=== PATIENT | female | born 1940 | race Caucasian/White ===

== ENCOUNTER 2019-02-05 11:53 | Inpatient (IN) | payer MEDICARE, OTHER ==
[~2019-02-05] VITALS: Ht 157.5 cm; Wt 75.1 kg
[2019-02-05] MEDS ORDERED: LEVSOD125 PO (12:07)
[2019-02-05] MEDS ORDERED: FLUT1DIS5 INH (12:07)
[2019-02-05] MEDS ORDERED: TIMO.5OPSO BOTHEYES (12:08)
[2019-02-05] MEDS ORDERED: OMEP20ER PO (12:08)
[2019-02-05] MEDS ORDERED: Ventolin/Prove6.7 GM INH (12:08)
[2019-02-05 12:15] LABS: Chloride (POC) 104 mmol/L (98-108); Creatinine (POC) 0.8 mg/dL (0.6-1.0); Glucose (ISTAT POC) 146 mg/dL (70-99); Hemoglobin (POC) 13.9 g/dL (12.0-16.0); Potassium (POC) 4.2 mmol/L (3.5-5.5); Sodium (POC) 138 mmol/L (135-148); Total CO2 (POC) 25 mmol/L (21-32)
--- NOTE | 2019-02-05 14:12 | NUR ---
PATIENT ARRIVED FROM THE CREPING MACHINE OPERATOR HELPER VIA HOSPITAL BED TO ROOM ICU 9, TR BAND IN PLACE ON RIGHT RADIAL, PATIENT IS AWAKE BUT HEAVILY SEDATED AND UNABLE TO ANSWER QUESTIONS, AND SON AT BEDSIDE, IS NOT VERY KNOWLEDGEABLE ON PATIENT'S MEDICAL HISTORY OR DAILY MEDICATIONS, WILL WAIT UNTIL PATIENT IS MORE ALERT, PATIENT STATED SHE HAS "TO PEE", BEDPAN GIVEN, VOIDED 425, BUT HAD ONE INCONTINENCE EPISODE PRIOR TO BEDPAN, LINEN CHANGED, PATIENT AND FAMILY WERE INSTRUCTED THAT PATIENT CANNOT MOVE RIGHT WRIST, ARMBOARD IN PLACE, PATIENT WAS PLACED ON MONITOR, FAMILY AND PATIENT ORIENTED TO ROOM AND NEW ENVIRONMENT, CALL LIGHT GIVEN AND EXPLAINED, FAMILY AND PATIENT VERBALIZED UNDERSTANDING, NO ORDERS YET FROM CREPING MACHINE OPERATOR HELPER, DR. WISE CALLED AND HE WILL WRITE AND SIGN THE ORDERS.
--- NOTE | 2019-02-05 15:21 | NUR ---
PATIENT IS WAKING UP SLIGHTLY MORE, STILL NOT ABLE TO TELL ME WHAT HAPPENED, C/O CHRONIC BACK PAIN, ICE WATER GIVEN, SWALLOWED WITHOUT ANY PROBLEM, RIGHT RADIAL SIDE INTACT, TR BAND AND ARMBOARD IN PLACE, PATIENT HAS GOOD SENSATION AND FEELING IN FINGERS OF RIGHT HAND, ABLE TO MOVE ALL FINGERS WITHOUT ANY PROBLEMS, CALL LIGHT IN REACH, WILL CONTINUE TO MONITOR.
--- NOTE | 2019-02-05 15:45 | NUR ---
PATIENT'S CAME OUT OF ROOM TO NURSES STATION AND REPORTED THAT PATIENT WAS C/O CHEST PAIN, DR. WISE NOTIFIED, NO PAIN MEDICATION ORDERED, DR. WISE ORDERED STAT EKG, NO CHANGES SEEN, DR. WISE AT BEDSIDE, ORDERED PAIN MEDICATION, WILL GIVE WHEN AVAILABLE, CALL LIGHT IN REACH, WILL CONTINUE TO MONITOR.
--- NOTE | 2019-02-05 16:33 | NUR ---
PATIENT RECEIVED ONE 5 MG PERCOCET PO FOR HER SHOULDER PAIN, AT BEDSIDE, LAB IN TO DRAW TROPONINS, PATIENT VERY PAINFUL WITH NEEDLE STICKS, WILL CONTINUE TO MONITOR, CALL LIGHT IN REACH.
--- NOTE | 2019-02-05 16:49 | NUR ---
PATIENT CONTINUES TO BE CONFUSED, WHEN ASKED WHERE SHE IS, PATIENT IS ABLE TO ANSWER "HOSPITAL", WHEN ASKED WHAT TOWN SHE IS IN, PATIENT IS UNABLE TO STATE AND ASKED FOR HELP, PATIENT STATED "I JUST DON'T FEEL WELL, AND ALL THAT PAIN", LAB IN AGAIN TO TRY AND DRAW TROPONINS, AT BEDSIDE, CALL LIGHT IN REACH, WILL CONTINUE TO MONITOR.
--- NOTE | 2019-02-05 17:10 | NUR ---
PATIENT C/O PAIN IN HER RIGHT LEG, PATIENT WAS FOUND TO HAVE BEEN INCONTINENT, ONE HEAVY WET BRIEF, PATIENT WAS CHANGED AND REPOSITIONED, STATED THAT "SHE GETS MAD WHEN SHE IS IN PAIN, AND TODAY SHE IS SCARED WELL", PATIENT CALMER, CALL LIGHT IN REACH, WILL CONTINUE TO MONITOR.
--- NOTE | 2019-02-05 17:44 | NUR ---
PATIENT APPEARS TO BE RESTING COMFORTABLY WITH EYES CLOSED, CALL LIGHT IN REACH, WILL CONTINUE TO MONITOR.
--- NOTE | 2019-02-05 17:48 | NUR ---
SHIFT SUMMARY NOTE: PATIENT APPEARS TO BE SLEEPING AT THIS TIME, RECEIVED ONE 5 MG PERCOCET PO FOR SHOULDER PAIN, PATIENT C/O NOT FEELING WELL ALL OVER, BUT MOSTLY SHOULDER PAIN, R RADIAL ACCESS SITE C/D/I, TR BAND HAD 12 CC OF AIR INFLATED, AT THIS TIME 6 CC'S HAVE BEEN REMOVED, PATIENT TOLERATING WELL, NO S/S OF HEMATOMA, NO BLEEDING, NONTENDER, ARMBOARD IN PLACE, PATIENT'S BASELINE IS ALERT AND ORIENTED BUT SHE IS STILL SLIGHTLY CONFUSED POSSIBLY FROM SEDATIVES ADMINISTERED FOR HEART CATH PROCEDURE, ALSO PATIENT EXPERIENCES URGENCY WHEN URINATING AND WAS INCONTINENT TWICE, PATIENT IS PLEASANT AND COOPERATIVE BUT GETS MAD WHEN SHE IS IN PAIN PER HER , VSS, AFEBRILE, PAIN APPEARS TO BE UNDER CONTROL AT THIS TIME, CALL LIGHT IN REACH, WILL CONTINUE TO MONITOR.
[2019-02-05 18:53] LABS: Magnesium, Blood 1.8 mg/dL (1.6-2.4); Potassium, Blood 3.5 mmol/L (3.5-5.5)
--- NOTE | 2019-02-05 19:30 | NUR ---
[place] of Care: Patient drowsy/sleepy, responds easily to verbal stimuli. Oriented to self/place, confused to time/date, and states she is in the hospital for "pain". Denies dyspnea/SOB, O2-96-98% on RA. C/o mid-sternal chest pain, patient unable to rate or describe pain, states 'it just hurts". Dr. Shepard to room at shift change, received verbal orders for EKG, Nitro gtt, and to given 1g magnesium IV x1 now. Dr. Shepard reviewed results of repeat EKG, stated no changes noted r/t previous EKG on day shift. Heart rhythm on monitor in room shows NSR, rate- 60's-70's, with occasional PVC's. Will start Nitro gtt and monitor for effect. TR band in place to right radial arterial access site. Day shift RN reports 2ml air remains in TR band, no s/s of bleeding or hematoma noted. Rt hand temp, color, sensation all wnl. Will continue to monitor for pain, safety, comfort.
[2019-02-06 03:13] LABS: BASOPHILS ABSOLUTE AUTO 0.06 K/mm3 (0.00-0.23); BASOPHILS PERCENT AUTO 0 % (0-2); EOSINOPHILS ABSOLUTE AUTO 0.04 K/mm3 (0.00-0.68); EOSINOPHILS PERCENT AUTO 0 % (0-6); Hematocrit 39.1 % (33.0-51.0); Hemoglobin 13.3 g/dL (11.5-16.0); IMMATURE GRAN ABSOLUTE AUTO 0.06 K/mm3 (0.00-0.10); IMMATURE GRAN PERCENT AUTO 0 % (0-1); LYMPHOCYTES ABSOLUTE AUTO 1.24 K/mm3 (0.84-5.20); LYMPHOCYTES PERCENT AUTO 8 % (21-46); MONOCYTES ABSOLUTE AUTO 1.12 K/mm3 (0.16-1.47); MONOCYTES PERCENT AUTO 7 % (4-13); Mean Corpuscular HGB 30.7 pg (26.0-34.0); Mean Corpuscular Volume 90 fL (80-100); Mean Platelet Volume 9.7 fL (9.1-12.4); NEUTROPHILS ABSOLUTE AUTO 13.28 K/mm3 (1.96-9.15); NEUTROPHILS PERCENT AUTO 84 % (41-73); Platelet Count 277 K/mm3 (150-400); RDW Standard Deviation 42.6 fL (35.1-46.3); Red Blood Cell Count 4.33 M/mm3 (3.80-5.20)
[2019-02-06 03:29] LABS: Anion Gap 10 mmol/L (6-16); Blood Urea Nitrogen 12 mg/dL (8-24); Bun/Creatinine Ratio 20.9 (12.0-20.0); CO2, Blood 24 mmol/L (21-32); Calcium, Blood 8.8 mg/dL (8.5-10.1); Chloride, Blood 106 mmol/L (98-108); Creatinine, Blood 0.57 mg/dL (0.40-1.00); Glomerular Filtration Rate >60 (60-); Glucose, Blood 175 mg/dL (70-99); Magnesium, Blood 2.3 mg/dL (1.6-2.4); Potassium, Blood 3.4 mmol/L (3.5-5.5); Sodium, Blood 140 mmol/L (136-145)
--- NOTE | 2019-02-06 06:24 | NUR ---
Shift Summary: Patient slept on/off throughout shift. Continues to c/o chest pain/discomfort throughout shift when awake. Patient remains pleasantly confused, unable to describe pain or rate pain. Also has difficulty identifying location of pain, will state "my arm hurts" then points to her chest when asked to show staff location. Nitro gtt titrated up from 5mcg/min to 80mcg/min throughout shift with little to no effect noted, BP remained stable but decreased to systolic 90's, MAP-65 at times. X1 prn Percocet given, patient stated that it was slightly helpful, and approx 2-3hr of sleep noted after administration. Repeat EKG obtained at 0100hr, with no significant changes noted r/t previous EKG. Contacted Dr. Shepard this morning r/t continues chest pain and continued confusion. Received orders for STAT CT of head without contrast, GI cocktail q6hr prn, and Morphine 1mg q2-4hr prn IV. Patient Transferred to imaging for CT scan and back ro room via hospital bed without difficulty. PRN Morphine and GI cocktail given upon return to unit, will monitor for effect. Appears calm and comfortable at this time, patient's at bedside, VSS. Will continue to monitor until report to day shift RN.
--- NOTE | 2019-02-06 09:31 | NUR ---
0800 PT IS ALERT BUT IS SOMEWHAT VAGE RE S/S AND HX OF WHAT IS HAPPENING. PT DENIES PAIN OR DISTRESS AT THIS TIME. NTG DOWN TO 6O MCG WITH PT C/O SL. BAEZA. VS NOTED SL SOFT AND WILL INQUIRE RE AM MEDS AND BALANCING NTG GTT. VS HAVE BEEN STABLE.
--- NOTE | 2019-02-06 09:38 | NUR ---
PT DID EXPERIENCE SOME N/V BUT RAPPIDLY SUBSIDED AFTER EMESIS. PT NOW C/O CHEST PAIN BUT UNABLE TO QUANTIFY AND IS MID-STERNAL. PT LABS TO BE DRAWN AND DR WISE IS AWARE OF CURRENT STATUS AND EKG...LABS TO FOLLOW.
--- NOTE | 2019-02-06 09:42 | NUR ---
ECHOCARDIOGRAM COMPLETE
--- NOTE | 2019-02-06 12:15 | NUR ---
NTG GTT TURNED OFF AND PT CON TO C/O ONLY SL H.A. AND WILL FOLLOW FOR NOW. PT DENIES CHEST PAIN AND VS NOTED ON AM PO MEDS.
--- NOTE | 2019-02-06 16:30 | NUR ---
ECHO CARDIOGRAM AND PARTIAL WITH CONTRAST COMPLETE
--- NOTE | 2019-02-06 17:36 | NUR ---
PT HAS JUST BEEN UP TO BSC AGAIN TO VOID BUT WAS ALSO INCONT OF URINE PRIOR TO CALL. PT CONT TO HAVE PLEASANT CONFUSION RELATED SYMPTOMS AND ATTTEMPTS TO COVER FOR HER MILD CONFUSION. WILL TAKE INSTRUCTION WELL BUT HAS SHORT MEMORY ISSUES. PT DENIES CHEST PAIN WITH MOVEMENT AND ACTIVITY. PT TR SITE IS INTACT AND WILL CONT TO USES WRIST BOARD DUE TO FORGETFULNESS. PT IS OCC PULLING ON SAT PROBE, AND LEADS. IS IN ROOM WITH PT BUT WILL ADD BED ALARM FOR EXTRA SAFETY MEASURES. TROPONIN FROM [address] WISE WITH REQUEST FOR TRANSFER DENIED DUE TO PT RECENT ICU HX OF CHEST PAIN, TROPONINS, AND NTG GTT USE. WILL RECONSIDER IN AM.
--- NOTE | 2019-02-06 19:30 | NUR ---
ASSUMED PT CARE FROM [place] [facility] PT SITTING UP IN BED VISITING WITH FAMILY. DENIES ANY CHEST PAIN AT THIS TIME. ARM BOARD IN PLACE TO RIGHT WRIST/ARM. RIGHT RADIAL SITE APPEARS SOFT, NON-TENDER WITH NO OOZING NOTED; DRESSING CDI. BLOOD PRESSURES STABLE AT THIS TIME. PT APPEARS ALERT AND ORIENTED X4; HOWEVER, FREQUENTLY LOOKS TO FAMILY FOR ANSWERS. AT TIMES PT BECOMES FRUSTRATED WITH FORGETFULNESS/CONFUSION, BUT IS EASILY REDIRECTABLE. PT ALSO MAKES STATEMENTS THAT DON'T ALWAYS MAKE LOGICAL SENSE. HOWEVER, PT IS ABLE TO MAKE HER BASIC NEEDS KNOWN; ABLE TO DEMONSTRATE USE OF CALL LIGHT APPROPRIATELY, WHICH WAS LEFT WITHIN REACH. FAMILY AT BEDSIDE AND APPROPRIATE WITH CARES.
--- NOTE | 2019-02-07 05:46 | NUR ---
END OF SHIFT SUMMARY PT REMAINS ALERT, BUT CONFUSED AND FORGETFUL AT BASELINE. MINIMAL SLEEP TONIGHT WITH MULITPLE BATHROOM INTERRUPTIONS. PT AT TIMES WOULD ASK, "WHO IS THAT GIRL OVER THERE?" WITH NOBODY IN THE DIRECTION SHE WAS POINTING. ASKED PT IF SHE WAS HEARING ANY VOICES IN WHICH SHE STATED, "NO". REASSURED PT THAT THERE WEREN'T ANY "GIRLS" IN THE DIRECTION SHE WAS POINTING. PT HAS DENIED CHEST PAIN ALL NIGHT. RIGHT RADIAL SITE IS SOFT, NON-TENDER WITH TEGADERM IN PLACE WITH NO OOZING NOTED. PT C/O HEADACHE THIS AM IN WHICH PT WAS GIVEN TYLENOL PER ORDERS; APPEARED EFFECTIVE PT IS CURRENTLY SLEEPING. AT BEDSIDE MOST OF NIGHT, BUT LEFT THIS EARLY AM TO GO HOME AND SHOWER. BED ALARM SET PT WILL ATTEMPT TO GET UP ON OWN. PT IS ABLE TO DEMONSTRATE HOW TO USE THE CALL LIGHT, BUT MAINLY HER ENSURES HER NEEDS ARE BEING MET. WILL CONTINUE TO MONITOR UNTIL REPORT IS HANDED OFF TO ONCOMING RN.
--- NOTE | 2019-02-07 12:13 | NUR ---
0800 ASSESMENT REVEALS PT WITHDRAWN AND DEPRESSED. SHE IS NOT VERY VERBAL AND IS NOT VERBAL YESTERDAY. PT ENCOURAGED TO GET UP INTO CHAIR WHICH SHE DID RELUCTANTLY. PT IS WEAK ON FEET AND WITH POOR BALANCE. PT ALSO REMAINS CONFUSED AND UNABLE TO MAKE EVEN A GOOD GUESS TO WHERE SHE IS THIS AM. PT IS PLEASANT AND WILL FOLLOW INSTRUCTIONS BUT SOMEWHAT IN A NON-PARTICIAPTING MOOD THIS AM. FAMILY IS IN WITH PT. PT ONLY ATE A FEW BITES OF FOOD THIS AM.
--- NOTE | 2019-02-07 12:31 | NUR ---
PT PASSING LOOSE BROWN STOOL THAT WILL BE SENT OFF FOR A SPECIMEN PER PROTOCAL. PT ALSO VOIDED.
--- NOTE | 2019-02-07 17:11 | NUR ---
PT HAS BEEN UP AND DOWN SEVERAL TIMES TODAY TO CHAIR AND IS CURRENTLY NAPPING. PT FAMILY HAS BEEN WITH PT MOST OF DAY. PT HAS NOT HAD CHEST PAIN OR RESP DISTRESS TODAY BUT CONT. TO HAVE PLEASANT CONFUSION AND FORGETFULNESS. PT VS HAVE BEEN STABLE WITH SBP 100-ADAM AND HR 60-70 RANGE.
--- NOTE | 2019-02-08 00:29 | NUR ---
UPDATE: DURING ASSESSMENT, PT C/O NOT BEING ABLE TO BREATH VERY WELL. PT LYING SUPINE AND FLAT. SATS INITIALLY 89% ON EAR LOBE. PT REPOSITIONED AND BROUGHT INTO A HIGH FOWLERS, OXYMETER PLACED ON RIGHT HAND WITH SATS 98%. PT CONTINUES TO DENYU CHEST PAIN, BUT STATE, "I DON'T KNOW" WHEN ASKED COULD BREATH EASIER SITTING UP. PT STATED WAS COMFORTABLE. PT HAS NOT VOIDED THIS SHIFT THUS FAR. PT'S SPOUSE STATED THAT PT VOIDS IN TOILET AT HOME WITH HELP. PT ATTENDS DRY. PT STATED FEELS TIRED. PT REMAINS ON MONITOR. SPOUSE REMAINS AT BEDSIDE. CALL LIGHT WITHIN REACH. WILL CONTINUE TO MONITOR.
--- NOTE | 2019-02-08 01:18 | NUR ---
START OF SHIFT: REPORT FROM JEFF CASIANO. PT AWAKE AT THAT TIME WITH FAMILY AT BEDSIDE. ASSESSMENT; PT ORIENTEDT TO SELF, FAMILY, AND FOLLOWS DIRECTION. PT WITH FLAT AFFECT AND STATED THAT SHE WAS JUST TIRED. PT WOULD LOOK TO FAMILY AND MAINLY HER SPOUSE FOR ANSWERS TO QUESTIONS THAT WERE BEING ASKED. PT'S DAUGHTER AT BEDSIDE AND STATED THAT THIS WAS NOT PT'S NORMAL BUT HAS BEEN FOR PAST COUPLE DAYS AND THAT PT HAS HAD HARDLY ANY SLEEP. PT'S SPOUSE STATED PT HAD A, "DIFFICULT NIGHT LAST NIGHT AND WAS TRYING TO PULL THAT THING OFF" (POINTING TO PT'S IV). PT OTHERWISE HAS DENIED PAIN T/O THIS NOC THUS FAR. (SEE PREVIOUS UPDATE NOTE). PT REMAINS ON CARDIAC MONITORING. CALL LIGHT WITHIN REACH.
--- NOTE | 2019-02-08 01:45 | NUR ---
INCREASED ECTOPY: PT RHTHYM WITH CONTINUED T-WAVE INVERSION. T/O THIS SHIFT PT WITH INCREASED ECTOPY AND OCCASIONAL EPISODES OF BIGEMINY. THIS DISCUSSED WITH TEST DEVELOPMENT ENGINEER WHO REVIEWED PT'S CHART AND SINCE PT HAS BEEN WITHOUT C/O PAIN, TO CONTINUE TO MONITOR PT. WILL CALL CARDIO IF ECTOPY INCREASES IN FREQUENCY OR CHANGES WITH PT CONSIDERATION TO DISCOMFORT OR PAIN.
--- NOTE | 2019-02-08 04:41 | NUR ---
PT UP TO BSC. PT MORE ORIENTED AND CONVERSIVE WITH SPOUSE AND ASKING THIS RN SIMPLE QUESTIONS. PT UP TO BSC WITH MODERATE ASSIST AND THEN ASSISTED BACK TO BED. PT TOLERATED WELL. CALL LIGHT WITHIN REACH. SPOUSE WENT HOME TO SHOWER.
--- NOTE | 2019-02-08 06:19 | NUR ---
PT AWAKENS FROM SLEEP. PT ALERT AND PLEASANT BUT C/O, "FEELING WHEEZY". DR. PUTNAM NOTIFIED. HAVE RT EVAIL AND TX. WITH NO OTHER ORDERS AT THIS TIME. INFORM DAY RN TO PASS ONTO DAY DOCK BUILDER.
--- NOTE | 2019-02-08 07:30 | NUR ---
ASSUMED CARE OF PATIENT; SEE ASSESSMENT CHARTING FOR DETAILS. PATIENT PLEASANT AND COOPERATIVE; AWARE SHE IS IN THE HOSPITAL AND IN [place] STATION BUT KEEPS FORGETTING WHY SHE IS HERE; REMINDERS GIVEN AND SHE WILL SAY "OH YEAH, I HAD A HEART ATTACK." IF ASKED A FEW MINUTES LATER SHE SAYS "DID I HAVE A STROKE?" ABLE TO FEED SELF AND AMBULATE WITH 1 PERSON ASSIST AND WALKER. DEPENDS WORN BUT CONTINENT OF URINE AND STOOL MAJORITY OF TIME. ABLE TO USE CALL BUTTON APPROPRIATELY. MONITOR REMAINS NSR AND VSS; AFEBRILE. LUNGS CLEAR BUT DIMINISHED IN BASES; INTERMITTENT WHEEZES. BIOX 90-95% ON ROOM AIR.
--- NOTE | 2019-02-08 09:15 | NUR ---
DR. WISE HERE; SPOKE TO PATIENT AND SPOUSE. INFORMED HIM PLAN TO SEND PATIENT HOME TODAY WITH [facility]. SPOUSE UPSET AND FEELS IT IS TOO SOON OR SHE NEEDS REHAB. FIRST. PHYSICIAN INFORMED HIM THAT PT/OT RECOMMENDED HHS TO AID IN STRENGTHENING AT HOME; SPOUSE STILL UPSET.
--- NOTE | 2019-02-08 09:20 | NUR ---
PHYSICIAN WANTING ACCOUNTING METHODS ANALYST TO SPEAK TO FAMILY AND ADDRESS CONCERNS SPOUSE HAVING. RN CONTACTED SAKINA FORMAN (CARE MANAGEMENT) AND UPDATED ON FAMILY CONCERNS ETC. SHE WILL COME DOWN AND TALK TO PATIENT SPOUSE AND ADULT DAUGHTER AND SNL.
--- NOTE | 2019-02-08 09:25 | NUR ---
RN HAD PATIENT AMBULATE, WITH USE OF WALKER AND STANDBY ASSIST., T/O HER ROOM; GOOD BALANCE AND FOLLOWED SAFETY INSTRUCTIONS, ETC. ABLE TO TRANSFER CHAIR TO WALKER AND WALKER TO CHAIR SAFELY AND WITHOUT PHYSICAL ASSISTANCE; JUST SOME COACHING. SPOUSE FELT BETTER BUT WANTS P.T. TO VISIT, PRIOR TO DISCHARGE HOME, AND AMBULATE PATIENT A LITTLE FURTHER.
--- NOTE | 2019-02-08 09:40 | NUR ---
LABS DRAWN PER MD ORDER.
--- NOTE | 2019-02-08 10:00 | NUR ---
T/C TO DR. WISE, PER HIS REQUEST, RE: D/C HOME AND [facility] F/U WELL DISCUSSION RN HAD WITH PAROLE AGENT ETC.; AWAITING CALL BACK.
[2019-02-08 10:13] LABS: BASOPHILS ABSOLUTE AUTO 0.06 K/mm3 (0.00-0.23); BASOPHILS PERCENT AUTO 1 % (0-2); EOSINOPHILS ABSOLUTE AUTO 0.43 K/mm3 (0.00-0.68); EOSINOPHILS PERCENT AUTO 4 % (0-6); Hematocrit 42.4 % (33.0-51.0); Hemoglobin 13.8 g/dL (11.5-16.0); IMMATURE GRAN ABSOLUTE AUTO 0.06 K/mm3 (0.00-0.10); IMMATURE GRAN PERCENT AUTO 1 % (0-1); LYMPHOCYTES PERCENT AUTO 11 % (21-46); MONOCYTES ABSOLUTE AUTO 0.81 K/mm3 (0.16-1.47); MONOCYTES PERCENT AUTO 7 % (4-13); Mean Corpuscular HGB Conc 32.5 g/dL (31.5-36.5); Mean Platelet Volume 9.7 fL (9.1-12.4); NEUTROPHILS ABSOLUTE AUTO 9.18 K/mm3 (1.96-9.15); NEUTROPHILS PERCENT AUTO 78 % (41-73); Platelet Count 234 K/mm3 (150-400); RDW Coefficient Variation 13.2 % (11.7-14.2); Red Blood Cell Count 4.45 M/mm3 (3.80-5.20); White Blood Cell Count 11.84 K/mm3 (4.00-11.30)
[2019-02-08 10:16] LABS: Mean Corpuscular Volume 95 fL (80-100)
[2019-02-08 10:23] LABS: Anion Gap 9 mmol/L (6-16); Blood Urea Nitrogen 15 mg/dL (8-24); CO2, Blood 23 mmol/L (21-32); Chloride, Blood 102 mmol/L (98-108); Creatinine, Blood 0.65 mg/dL (0.40-1.00); Glomerular Filtration Rate >60 (60-); Glucose, Blood 198 mg/dL (70-99); Sodium, Blood 134 mmol/L (136-145)
--- NOTE | 2019-02-08 10:39 | NUR ---
T/C TO DR. WISE RE: K+ LEVEL OF 3.O; ALSO REMINDED HIM NEED TO CALL BACK RE: HHS/DISCHARGE ORDERS; AWAITING CALL BACK.
--- NOTE | 2019-02-08 10:55 | NUR ---
DR. WISE ARRIVED; HAD PLACED ORDER FOR LIQUID PO K+ (40MEQ); RN WILL GIVE BEFORE PATIENT DISCHARGES HOME. PHYSICIAN DID FACE TO FACE HHS DISCUSSION WITH PATIENT AND SPOUSE AND PLACED ORDERS.
--- NOTE | 2019-02-08 11:15 | NUR ---
PHYSICAL THERAPY HERE TO WORK WITH PATIENT; SEE THERAPY NOTES.
[2019-02-08] MEDS ORDERED: ASPI81CH PO (11:38)
[2019-02-08] MEDS ORDERED: ATOR40TA PO (11:38)
[2019-02-08] MEDS ORDERED: LISI5 PO (11:39)
[2019-02-08] MEDS ORDERED: METO25ER PO (11:39)
[2019-02-08] MEDS ORDERED: POTA10T PO (11:40)
[2019-02-08] MEDS ORDERED: TICA90TA PO (11:40)
--- NOTE | 2019-02-08 11:55 | NUR ---
INOCENCIA ZAMBRANO RN FROM [facility] (PATIENT'S REQUESTED HSS) TO COME DOWN AND DISCUSS SERVICE WITH PATIENT AND SPOUSE.
--- NOTE | 2019-02-08 12:35 | NUR ---
DISCHARGE INSTRUCTIONS GIVEN TO PATIENT AND SPOUSE WITH UNDERSTANDING VERBALIZED AND SPOUSE ACKNOWLEDGED UNDERSTANDING BY SIGNING WRITTEN CONSENT. RX'S CALLED INTO PATIENTS' PHARMACY, [facility], AND APPOINTMENTS MADE FOR F/U WITH PCP AND WITH CARDIOLOGY.
--- NOTE | 2019-02-08 12:45 | NUR ---
DISCHARGED TO HOME; TO PRIVATE CAR VIA W/C. BELONGINGS, STENT CARD, INSTRUCTIONS, ETC. SENT WITH PATIENT.
== END 2019-02-08 12:40 | disposition home or self-care (01) | DRG 247 ==
LOC: ER 11:53 → ICUW 12:12 → ENPENDDIS 02-08 11:11 → ICUW 02-08 12:40
PROVIDERS: ADMIT Internal Medicine Interventional Cardiology
PROC: 027034Z Dilation of Coronary Artery, One Artery with Drug-eluting Intraluminal Device, Percutaneous Approach (ICD-10-PCS; principal; 2019-02-05)
PROC: B240ZZ3 Ultrasonography of Single Coronary Artery, Intravascular (ICD-10-PCS; 2019-02-05)
PROC: 4A023N7 Measurement of Cardiac Sampling and Pressure, Left Heart, Percutaneous Approach (ICD-10-PCS; 2019-02-05)
PROC: B2111ZZ Fluoroscopy of Multiple Coronary Arteries using Low Osmolar Contrast (ICD-10-PCS; 2019-02-05)
DX: I21.09 ST elevation (STEMI) myocardial infarction involving other coronary artery of anterior wall (principal); E03.9 Hypothyroidism, unspecified; E66.01 Morbid (severe) obesity due to excess calories; Z68.31 Body mass index [BMI] 31.0-31.9, adult; J44.9 Chronic obstructive pulmonary disease, unspecified; F03.90 Unspecified dementia, unspecified severity, without behavioral disturbance, psychotic disturbance, mood disturbance, and anxiety; Z79.82 Long term (current) use of aspirin; I50.9 Heart failure, unspecified
CPT/HCPCS: 36415; 70450; 80047; 80048; 80053; 83735; 84132; 84484; 85014; 85025; 85347; 87493; 92978; 93005; 93010; 93306; 93308; 93321; 93456; 93458; 94640; 94760; 96372; 97162; 97166; 97530; 99152; 99153; 99285-25; A9270; C1725; C1753; C1769; C1874; C1887; C1894; C8929; C9606; J0461; J1644; J1940; J2250; J2270; J3010; J3475; J7030; J7050; Q9957; Q9967

== ENCOUNTER 2019-02-11 01:48 | Observation (INO) | payer MEDICARE, OTHER ==
[~2019-02-11] VITALS: Ht 157.5 cm; Wt 87.7 kg
[~2019-02-11 01:48] MED LIST: ASPI81CH PO; ATOR40TA PO; FLUT1DIS5 INH; LEVSOD125 PO; LISI5 PO; METO25ER PO; OMEP20ER PO; POTA10T PO; TICA90TA PO; TIMO.5OPSO BOTHEYES; Ventolin/Prove6.7 GM INH
[2019-02-11 02:35] LABS: BASOPHILS PERCENT AUTO 1 % (0-2); EOSINOPHILS ABSOLUTE AUTO 0.71 K/mm3 (0.00-0.68); EOSINOPHILS PERCENT AUTO 8 % (0-6); Hematocrit 32.6 % (33.0-51.0); Hemoglobin 11.1 g/dL (11.5-16.0); IMMATURE GRAN ABSOLUTE AUTO 0.03 K/mm3 (0.00-0.10); IMMATURE GRAN PERCENT AUTO 0 % (0-1); LYMPHOCYTES ABSOLUTE AUTO 1.86 K/mm3 (0.84-5.20); LYMPHOCYTES PERCENT AUTO 20 % (21-46); MONOCYTES ABSOLUTE AUTO 0.92 K/mm3 (0.16-1.47); MONOCYTES PERCENT AUTO 10 % (4-13); Mean Platelet Volume 10.1 fL (9.1-12.4); NEUTROPHILS ABSOLUTE AUTO 5.74 K/mm3 (1.96-9.15); NEUTROPHILS PERCENT AUTO 61 % (41-73); Platelet Count 263 K/mm3 (150-400); RDW Standard Deviation 42.6 fL (35.1-46.3); Red Blood Cell Count 3.65 M/mm3 (3.80-5.20); White Blood Cell Count 9.36 K/mm3 (4.00-11.30)
[2019-02-11 02:41] LABS: Mean Corpuscular HGB 30.5 pg (26.0-34.0); Mean Corpuscular Volume 89 fL (80-100)
[2019-02-11 02:51] LABS: Alanine Aminotransfer (ALT/SGP 18 U/L (12-78); Albumin, Blood 3.3 g/dL (3.4-5.0); Alk Phos 80 U/L (50-136); Anion Gap 9 mmol/L (6-16); Aspartate Aminotrans (AST/SGOT 22 U/L (12-37); Bilirubin, Total 0.5 mg/dL (0.1-1.0); Blood Urea Nitrogen 18 mg/dL (8-24); Bun/Creatinine Ratio 24.7 (12.0-20.0); CO2, Blood 23 mmol/L (21-32); Calcium, Blood 9.1 mg/dL (8.5-10.1); Chloride, Blood 106 mmol/L (98-108); Creatinine, Blood 0.73 mg/dL (0.40-1.00); Globulin, Blood 3.2 g/dL (2.2-4.0); Glomerular Filtration Rate >60 (60-); Glucose, Blood 127 mg/dL (70-99); Potassium, Blood 3.3 mmol/L (3.5-5.5); Sodium, Blood 138 mmol/L (136-145); Total Protein, Blood 6.5 g/dL (6.4-8.2)
--- NOTE | 2019-02-11 07:09 | NUR ---
PATIENT IS A NEW ADMIT FROM THE ED. THREE PERSON TRANSFER FROM [facility] TO BED. AXOX 3 W/CONFUSION AT TIMES. PATIENT ORIENTED TO ROOM AND CALL LIGHT SYSTEM. REPORTS UPPER CHEST PAIN ONE OUT OF TEN. DENIES N/V AND SOB. PIV INTACT AND TELEMETRY IN PLACE NSR AT 60 PER TELE MONITOR. ONE TO TWO PERSON ASSIST TO BSC. PATIENT REPORTS LIMITED DEPTH PERCEPTION. VSS/AFEBRILE. CALL LIGHT IN REACH.
--- NOTE | 2019-02-11 08:26 | NUR ---
CHEST PRESSURE DR. ZAMAN CALLED & NOTIFIED ABOUT PT CHEST PRESSURE. PT RATED PRESSURE 4/10 FOR DISCOMFORT. DENIES RADIATING/ CHEST PAIN. ALSO INFORMED ABOUT SBP 108 & LISINOPRIL/METOPEROL DOSES. GAVE PERAMETERS & LESSENED LISINOPRIL DOSE DAILY. WILL CONTINUE TO MONITOR.
--- NOTE | 2019-02-11 10:36 | NUR ---
CHEST PAIN PT C/O INCREASED CHEST PAIN. PT UNABLE TO GIVE A NUMBER FOR PAIN LEVEL. PT STATES "IT JUST HURTS". PT STATED THAT THE PT ALSO C/O JAW PAIN EARLIER THIS AM. DR. ZAMAN NOTIFIED. STAT EKG OBTAINED. LAB CALLED FOR TROP DRAW. 1ST DOSE OF SL NITRO GIVEN. WILL CONTINUE TO MONITOR.
--- NOTE | 2019-02-11 10:41 | NUR ---
PT STATES CHEST PAIN IS DOWN TO A 1 AFTER 1 DOSE OF NITRO. WILL CONTINUE TO MONITOR.
[2019-02-11 10:51] LABS: Hematocrit 33.3 % (33.0-51.0); Hemoglobin 11.2 g/dL (11.5-16.0); Mean Corpuscular HGB 30.7 pg (26.0-34.0); Mean Corpuscular HGB Conc 33.6 g/dL (31.5-36.5); Mean Corpuscular Volume 91 fL (80-100); Mean Platelet Volume 10.1 fL (9.1-12.4); Platelet Count 238 K/mm3 (150-400); RDW Coefficient Variation 13.2 % (11.7-14.2); RDW Standard Deviation 43.1 fL (35.1-46.3); Red Blood Cell Count 3.65 M/mm3 (3.80-5.20); White Blood Cell Count 8.28 K/mm3 (4.00-11.30)
[2019-02-11 11:06] LABS: Alanine Aminotransfer (ALT/SGP 14 U/L (12-78); Albumin, Blood 3.2 g/dL (3.4-5.0); Alk Phos 62 U/L (50-136); Anion Gap 10 mmol/L (6-16); Aspartate Aminotrans (AST/SGOT 19 U/L (12-37); Bilirubin, Total 0.5 mg/dL (0.1-1.0); Blood Urea Nitrogen 13 mg/dL (8-24); Bun/Creatinine Ratio 21.9 (12.0-20.0); CO2, Blood 22 mmol/L (21-32); Calcium, Blood 8.9 mg/dL (8.5-10.1); Chloride, Blood 106 mmol/L (98-108); Creatinine, Blood 0.59 mg/dL (0.40-1.00); Globulin, Blood 3.3 g/dL (2.2-4.0); Glomerular Filtration Rate >60 (60-); Glucose, Blood 162 mg/dL (70-99); Potassium, Blood 3.5 mmol/L (3.5-5.5); Sodium, Blood 138 mmol/L (136-145); Total Protein, Blood 6.5 g/dL (6.4-8.2)
[2019-02-11 11:14] LABS: Troponin I 2.02 ng/mL (0.000-0.040)
--- NOTE | 2019-02-11 13:32 | NUR ---
Echocardiogram completed.
[2019-02-11] MEDS ORDERED: Isosorbide Mono30 MG PO (15:47)
[2019-02-11] MEDS ORDERED: NITR.4SL SL (15:50)
[2019-02-11] MEDS ORDERED: OMEPRAZOLE20 MG PO (15:50)
[2019-02-11] MEDS ORDERED: ASPI325EC PO (15:51)
--- NOTE | 2019-02-11 16:10 | NUR ---
PT DISCHARGED PT DISCHARGED IN STABLE CONDITION WITH VSS AT 1610. PT & EDUCATED ON DC INSTRUCTIONS, FOLLOW UP APPOINTMENTS, & NEW MEDS. MEDS FAXED TO [facility]. BOB URIBE IN ASSESSMENT PRIOR TO DC. IV REMOVED & INTACT.
== END 2019-02-11 16:10 | disposition home or self-care (01) ==
LOC: ER 01:48 → MEDS 01:49
PROVIDERS: Emergency Medicine; ADMIT Internal Medicine
DX: R07.89 Other chest pain (principal); R77.8 Other specified abnormalities of plasma proteins; I25.2 Old myocardial infarction; I25.10 Atherosclerotic heart disease of native coronary artery without angina pectoris; I50.20 Unspecified systolic (congestive) heart failure; J44.9 Chronic obstructive pulmonary disease, unspecified; Z95.5 Presence of coronary angioplasty implant and graft; R41.3 Other amnesia; F03.90 Unspecified dementia, unspecified severity, without behavioral disturbance, psychotic disturbance, mood disturbance, and anxiety; E03.9 Hypothyroidism, unspecified; E66.9 Obesity, unspecified; Z68.32 Body mass index [BMI] 32.0-32.9, adult; Z79.82 Long term (current) use of aspirin; Z79.899 Other long term (current) drug therapy; Z79.51 Long term (current) use of inhaled steroids; Z88.8 Allergy status to other drugs, medicaments and biological substances; Z87.891 Personal history of nicotine dependence
CPT/HCPCS: 36415; 71046; 80053; 82550; 83690; 83880; 84484; 85025; 85027; 93005; 93010; 93308; 96372; 99285-25; G0378; J1650

== ENCOUNTER → 2021-09-02 | Outpatient (CLI) | payer MEDICARE, OTHER ==
[~2021-09-02] MED LIST changes: +ASPI325EC PO; +Isosorbide Mono30 MG PO; +NITR.4SL SL; +OMEPRAZOLE20 MG PO; +Prednisone20 MG PO; +Zithromax250 MG PO
[2021-09-02 21:11] LABS: Microalb/Creat Ratio UR, Rand 20.955 mg/g (0.000-30.000); Microalbumin, Random Urine 32.9 mg/L (0.000-20.000)
== END | disposition home or self-care (01) ==
LOC: LAB SHORT 14:00
PROVIDERS: Physician Assistant
DX: E11.9 Type 2 diabetes mellitus without complications (principal)
CPT/HCPCS: 82043; 82570

== ENCOUNTER 2021-12-02 21:05 | Emergency (ER) | payer MEDICARE, OTHER ==
[~2021-12-02] VITALS: Ht 157.5 cm; Wt 81.7 kg
[2021-12-03 00:06] LABS: BASOPHILS ABSOLUTE AUTO 0.08 K/mm3 (0.00-0.23); BASOPHILS PERCENT AUTO 1 % (0-2); EOSINOPHILS ABSOLUTE AUTO 0.24 K/mm3 (0.00-0.68); EOSINOPHILS PERCENT AUTO 3 % (0-6); Hematocrit 39.9 % (33.0-51.0); Hemoglobin 13.2 g/dL (11.5-16.0); IMMATURE GRAN ABSOLUTE AUTO 0.02 K/mm3 (0.00-0.10); IMMATURE GRAN PERCENT AUTO 0 % (0-1); LYMPHOCYTES ABSOLUTE AUTO 0.97 K/mm3 (0.84-5.20); LYMPHOCYTES PERCENT AUTO 13 % (21-46); MONOCYTES ABSOLUTE AUTO 0.75 K/mm3 (0.16-1.47); MONOCYTES PERCENT AUTO 10 % (4-13); Mean Corpuscular HGB 31.1 pg (26.0-34.0); Mean Corpuscular HGB Conc 33.1 g/dL (31.5-36.5); Mean Corpuscular Volume 94 fL (80-100); NEUTROPHILS ABSOLUTE AUTO 5.58 K/mm3 (1.96-9.15); NEUTROPHILS PERCENT AUTO 73 % (41-73); Platelet Count 204 K/mm3 (150-400); RDW Coefficient Variation 13.4 % (11.7-14.2); RDW Standard Deviation 46.2 fL (35.1-46.3); Red Blood Cell Count 4.25 M/mm3 (3.80-5.20); White Blood Cell Count 7.64 K/mm3 (4.00-11.30)
[2021-12-03 00:23] LABS: Source, Urine Clean Catch
[2021-12-03 00:29] LABS: Appearance, Urine Hazy (Clear); Bilirubin, Urine Neg (Neg); Blood, Urine 2+ (Neg); Color, Urine Yellow (P-Yellow); Glucose Qualitative, Urine Neg (Neg); Ketones, Urine 1+ (Neg); Leukocyte Esterase, Urine 1+ (Neg); Nitrite, Urine Neg (Neg); Protein, Urine 1+ (Neg); Specific Gravity, Urine 1.015 (1.003-1.022); Urobilinogen, Urine 1+ (Normal)
[2021-12-03 00:30] LABS: Albumin, Blood 3.8 g/dL (3.4-5.0); Albumin/Globulin Ratio 1.1 (0.8-1.8); Bilirubin, Total 1.2 mg/dL (0.1-1.0); Bun/Creatinine Ratio 18.8 (12.0-20.0); Calcium, Blood 9.3 mg/dL (8.5-10.1); Creatinine, Blood 0.8 mg/dL (0.40-1.00); Globulin, Blood 3.4 g/dL (2.2-4.0); Potassium, Blood 3.8 mmol/L (3.5-5.5); Total Protein, Blood 7.2 g/dL (6.4-8.2)
[2021-12-03 00:36] LABS: Amorphous Light (0-Heavy); Bacteria Many /hpf; Red Blood Cells, Urine 0-2 /hpf (0-2); Squamous Epithelial Cells Few /hpf (Few)
[2021-12-03] MEDS ORDERED: CEPH500 PO (01:07)
== END 2021-12-03 02:00 | disposition home or self-care (01) ==
LOC: ER 21:05
PROVIDERS: Emergency Medicine
DX: U07.1 COVID-19 (principal); N39.0 Urinary tract infection, site not specified; J44.9 Chronic obstructive pulmonary disease, unspecified; E03.9 Hypothyroidism, unspecified; I25.10 Atherosclerotic heart disease of native coronary artery without angina pectoris; F03.90 Unspecified dementia, unspecified severity, without behavioral disturbance, psychotic disturbance, mood disturbance, and anxiety; I50.20 Unspecified systolic (congestive) heart failure; Z79.82 Long term (current) use of aspirin; Z79.899 Other long term (current) drug therapy; Z79.52 Long term (current) use of systemic steroids
CPT/HCPCS: 51701; 80053; 81001; 84443; 85025; 87086; 99284; A9270

== ENCOUNTER → 2022-03-05 | Outpatient (CLI) | payer MEDICARE, OTHER ==
[~2022-03-05] MED LIST changes: +CEPH500 PO
== END | disposition home or self-care (01) ==
LOC: LAB SHORT 18:01 → LAB 18:01
DX: L02.412 Cutaneous abscess of left axilla (principal)
CPT/HCPCS: 87070; 87077; 87081; 87186; 87205

== ENCOUNTER → 2022-07-28 | Outpatient (CLI) | payer MEDICARE, OTHER | END | disposition home or self-care (01) | LOC: LAB SHORT 16:15 → LAB 16:15 | DX: N39.0 Urinary tract infection, site not specified (principal) | CPT/HCPCS: 87077; 87086; 87186 ==